=== PATIENT | female | born 1955 | race Caucasian/White ===

== ENCOUNTER 2017-07-04 11:24 | Emergency (ER) | payer OTHER ==
[~2017-07-04] VITALS: Ht 182.9 cm; Wt 111.2 kg
[2017-07-04 13:50] VITALS: BP 180/102
== END 2017-07-04 13:52 | disposition home or self-care (01) ==
LOC: EME 11:24
DX: S09.90XA Unspecified injury of head, initial encounter (principal); I10 Essential (primary) hypertension; W00.0XXA Fall on same level due to ice and snow, initial encounter; Z98.1 Arthrodesis status
CPT/HCPCS: 70450; 99281; 99283